=== PATIENT | female | born 1995 | race Asian ===

== ENCOUNTER 2023-10-09 04:18 | Day surgery (SDC) | payer OTHER ==
[2023-10-07 16:52] VITALS: BMI 26.1
[2023-10-09 10:25] VITALS: BP 119/62; PULSE 67; RESP 19; TEMP 98.2
[2023-10-09] MEDS ORDERED: PROPOFOL 40 ML ONE (12:27)
== END 2023-10-09 13:00 | disposition home or self-care (01) ==
LOC: JASU-SURG 04:18
PROVIDERS: ATTEND Obstetrics & Gynecology
DX: Z53.8 Procedure and treatment not carried out for other reasons (principal)